=== PATIENT | female | born 1945 | race Caucasian/White ===

== ENCOUNTER → 2018-05-07 07:50 | Outpatient (CLI) | payer MEDICARE, SELFPAY ==
--- NOTE | 2018-05-07 | DI.MG.S_ITS ---
BILATERAL DIGITAL SCREENING MAMMOGRAM 3D/2D WITH CAD: 05/07/2018 CLINICAL: Routine screening. Comparison is made to exams dated: 04/06/2016 mammogram, 04/04/2014 mammogram, and 06/14/2012 mammogram - [facility]. There are scattered fibroglandular elements in both breasts. Current study was also evaluated with a Computer Aided Detection (CAD) system. No significant masses, calcifications, or other findings are seen in either breast. There has been no significant interval change. IMPRESSION: NEGATIVE There is no mammographic evidence of malignancy. A 1 year screening mammogram is recommended. This exam was interpreted at Station ID: [id number]. NOTE: For mammograms, a report in lay terms will be sent to the patient. Approximately 15% of breast malignancies will not be visualized mammographically. In the management of a palpable breast mass, a negative mammogram must not discourage biopsy of a clinically suspicious lesion. Electronically Signed By: Ernie vidales/rajendra:05/07/2018 13:22:50 copy to: Scar [facility]reen letter sent: Normal Exam ACR BI-RADS Category 1: Negative [id number]
== END ==
PROVIDERS: PCP Family Medicine; Visit Provider Obstetrics & Gynecology
DX: Z12.31 Encounter for screening mammogram for malignant neoplasm of breast (principal)
CPT/HCPCS: 77063; 77067

== ENCOUNTER → 2018-05-10 09:28 | Outpatient (CLI) | payer MEDICARE, SELFPAY ==
--- NOTE | 2018-05-10 | DI.RAD.S_ITS ---
PROCEDURE: XR KNEE LT 3V INDICATIONS: LEFT KNEE PAIN TECHNIQUE: 3 views of the knee were acquired. COMPARISON: [facility], , KNEE 3V LEFT, 02/24/2015, 11:10. FINDINGS: Bones: No fractures or dislocations. No suspicious bony lesions. Moderate medial compartment osteoarthritic degenerative changes are noted. Mild lateral compartment osteoarthritic degenerative changes noted. Moderate to severe patellofemoral compartment osteoarthritic changes. Numerous ossifications project over the suprapatellar joint space and the posterior joint space concerning for ossified intra-articular loose bodies. Soft tissues: No joint effusion. IMPRESSION: 1. Tricompartment osteoarthritis. 2. Findings suspicious for multiple ossified intra-articular loose bodies. Recommend MRI of the left knee for definitive characterization if clinically indicated. Dictated by: Hoa Dixon MD, PhD on 05/10/2018 at 9:54 Approved by: Hoa Dixon MD, PhD on 05/10/2018 at 9:56
== END ==
PROVIDERS: PCP Family Medicine; Visit Provider Family Medicine
DX: M25.562 Pain in left knee (principal); M17.12 Unilateral primary osteoarthritis, left knee
CPT/HCPCS: 73562

== ENCOUNTER → 2018-05-28 07:19 | Outpatient (CLI) | payer MEDICARE, SELFPAY ==
--- NOTE | 2018-05-28 | DI.MRI.S_ITS ---
PROCEDURE: MR KNEE LT WO CON INDICATIONS: LEFT KNEE PAIN TECHNIQUE: Noncontrast sagittal PD fast spin echo and T2 fast spin echo with fat saturation, sagittal 3-D FLASH with fat saturation; coronal T1 spin echo and PD fast spin echo with fat saturation, and axial PD fast spin echo with fat saturation through the knee. COMPARISON: [facility], CR, XR KNEE LT 3V, 05/10/2018, 9:10. FINDINGS: Image quality: Excellent. Menisci: There is radial tearing along the free edge in the body of the lateral meniscus. There is a small focal degenerative tear within the posterior horn of the medial meniscus involving the inferior articular surface. The meniscal root ligaments appear intact. Cruciate ligaments: The anterior and posterior cruciate ligaments appear intact. Medial structures: The medial collateral ligament appears intact. The semimembranosus tendon insertions, and meniscocapsular junction appear intact. Visualized portions of the pes anserinus tendons appear within normal limits without discrete bursal fluid collections. Lateral structures: The lateral collateral ligament, long and short heads of the biceps femoris tendon appear intact. The popliteus tendon appears intact. Iliotibial band appears normal. Anterior structures: The quadriceps and patellar tendons appear intact. Patellar alignment is normal. No femoral trochlear dysplasia or ventral trochlear prominence. No edema in the infrapatellar fat pad. Bones and cartilage: No bone marrow contusions or fractures. There is mild osteophytosis. Mild cartilage thinning is present in the medial compartment with mild superficial chondral fraying. In the lateral compartment, there is mild superficial chondral heterogeneity. In the patellofemoral compartment, there is moderate cartilage thinning with mild chondral fissuring laterally associated with small foci of subchondral edema along the lateral patellar facet. Joint space: There is a small joint effusion. There are a few posterior joint bodies including 2 clustered joint bodies slightly posterior medial to the PCL measuring up to 1 cm and 2 joint bodies in a loculated joint recess extending inferiorly posterior to the proximal to vertebral joint. These measure up to 1.3 cm and 1 cm. No Ko's cyst. Normal appearing synovial plicae are incidentally noted. IMPRESSION: 1. Mild tearing of the menisci as described. 2. Small joint effusion with multiple posterior joint bodies in loculated joint recesses. 3. Mild to moderate tricompartmental osteoarthritic changes. Dictated by: Ino Connor M.D. on 05/28/2018 at 8:42 Approved by: Ino Connor M.D. on 05/28/2018 at 8:51
== END ==
PROVIDERS: PCP Family Medicine; Visit Provider Family Medicine
DX: M23.222 Derangement of posterior horn of medial meniscus due to old tear or injury, left knee (principal); M23.362 Other meniscus derangements, other lateral meniscus, left knee; M25.562 Pain in left knee; M25.462 Effusion, left knee; M17.12 Unilateral primary osteoarthritis, left knee
CPT/HCPCS: 73721

== ENCOUNTER → 2019-06-11 09:38 | Outpatient (CLI) | payer MEDICARE, SELFPAY ==
--- NOTE | 2019-06-11 | DI.MRI.S_ITS ---
PROCEDURE: MR HEAD/BRAIN WO CON INDICATIONS: Other visual disturbances TECHNIQUE: Non-contrast axial T1 spin echo, axial T2 fast spin echo, sagittal and axial FLAIR, coronal T2 fast spin echo, axial gradient echo, axial diffusion and ADC through the brain. The patient declined the scheduled contrast administration. COMPARISON: None. FINDINGS: Image quality: Excellent. CSF spaces: Ventricles appear symmetric in size and shape. Basal cisterns are patent. No extra-axial fluid collections. Brain: No intracranial bleeds or mass effects. There is cerebral volume loss for age. There are periventricular and deep white matter chronic small vessel ischemic changes. Brainstem appears normal. Diffusion-weighted images show no acute ischemic insults. No chronic ischemic insults. Normal intravascular flow voids are present. Skull and face: Calvarial bone marrow is normal in signal. Orbits are normal. Sinuses: Mild to moderate mucosal thickening is seen within the right maxillary sinus and the ethmoid air cells. Mild mucosal thickening is seen elsewhere within the paranasal sinuses. No abnormal mastoid air cell fluid can be seen. IMPRESSION: Unremarkable noncontrast intracranial study for age. Dictated by: Lucas Beth M.D. on 06/11/2019 at 11:34 Approved by: Lucas Beth M.D. on 06/11/2019 at 11:36
== END ==
PROVIDERS: PCP Family Medicine; Visit Provider Family Medicine
DX: H53.8 Other visual disturbances (principal); G44.52 New daily persistent headache (NDPH)
CPT/HCPCS: 70551

== ENCOUNTER → 2020-03-27 12:43 | Outpatient (CLI) | payer MEDICARE, SELFPAY ==
--- NOTE | 2020-03-27 12:45 | DI.RAD.S_ITS ---
This blank DEXA report has been sent in error by the PACS system. The correct and complete report will be forthcoming in 1-2 days. Thank you for your patience and understanding. COMPARISON: None. Dictated by: Cheo Rowland M.D. on 03/27/2020 at 13:36 Approved by: Cheo Rowland M.D. on 03/27/2020 at 13:36
== END ==
PROVIDERS: PCP Family Medicine; Referring Provider Obstetrics & Gynecology; Visit Provider Obstetrics & Gynecology
DX: Z13.820 Encounter for screening for osteoporosis (principal); Z78.0 Asymptomatic menopausal state
CPT/HCPCS: 77080

== ENCOUNTER → 2020-05-04 14:36 | Outpatient (CLI) | payer MEDICARE, SELFPAY ==
--- NOTE | 2020-05-04 | DI.MRI.S_ITS ---
PROCEDURE: MR HIP RT WO CON INDICATIONS: Pain in right hip TECHNIQUE: Noncontrast coronal T1 spin echo and STIR through the bony pelvis. Coronal and axial T2 fast spin echo with fat saturation, sagittal T1 spin echo, and oblique axial T2 fast spin echo with fat saturation through the hip. COMPARISON: None. FINDINGS: Image quality: Excellent. Bones and joints: No fracture identified. Sacroiliac joints are unremarkable in signal intensity. There is lower lumbar spondylosis and facet arthropathy. No pathologic hip joint effusion. No evidence of osteonecrosis. Tendons and ligaments: There is severe gluteus medius and minimus tendinopathy, with abnormal signal extending to the musculotendinous junction. Proximal iliotibial band intact. Iliopsoas tendon intact. Origin of the hamstring tendon intact. The straight and reflected heads of the rectus femoris muscle origin appear intact Ligamentum teres appears intact where visualized. Labrum: Probably chronic anterosuperior labral tear with macerated appearance. There is a astorga partial-thickness chondral loss. The alpha angle of the femur is within normal limits at less than 55 degrees. Soft tissues: Visualized muscles demonstrate normal bulk and internal signal. Quadratus femoris muscle normal. Proximal sciatic neurovascular bundle appears normal adjacent to the hamstring tendons. No free pelvic fluid. Bladder normal. Genitourinary structures and bowel loops appear normal where visualized. 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 Macerated appearing chronic anterosuperior labral tear, versus advanced degeneration. Mild adjacent partial-thickness chondral loss. Dictated by: Amaury Henriquez M.D. on 05/04/2020 at 17:10 Approved by: Amaury Henriquez M.D. on 05/04/2020 at 17:17
== END ==
PROVIDERS: PCP Family Medicine; Referring Provider Family Medicine; Visit Provider Family Medicine
DX: M25.551 Pain in right hip (principal); M47.816 Spondylosis without myelopathy or radiculopathy, lumbar region; M67.951 Unspecified disorder of synovium and tendon, right thigh
CPT/HCPCS: 73721

== ENCOUNTER → 2021-01-18 10:36 | Outpatient (CLI) | payer MEDICARE, SELFPAY ==
--- NOTE | 2021-01-18 10:41 | DI.RAD.S_ITS ---
PROCEDURE: FL JOINT INJECTION LARGE RT INDICATIONS: Unilateral primary osteoarthritis, right hip COMPARISON: None. TECHNIQUE: The indications, alternatives, benefits, risks, and complications of the procedure were explained to the patient. Written informed consent was obtained and placed in the chart. The patient was placed in an appropriate position on the fluoroscopy table, and a site was chosen for percutaneous access under fluoroscopic guidance. The site was prepped and draped in a sterile fashion. Local anesthetic was administered using a 1% lidocaine solution. A hypodermic or spinal needle was then used to access the symptomatic joint. Intra-articular location of the needle tip was confirmed by injecting a small amount of contrast, followed by steroid administration. The needle was then withdrawn, and a bandage applied to the puncture site. FINDINGS: Joint injected: Right hip Medications injected: 1 mL of 40 mg/mL Kenalog and 3 cc of 0.5% Ropivacaine mixture. Patient's pain before injection: 3 out of 10. Patient's pain after injection: 3 out of 10. Complications: None. IMPRESSION: Successful fluoroscopically guided administration of steroid and anaesthetic solution into the right hip joint. Dictated by: Amaury Henriquez M.D. on 01/18/2021 at 14:37 Approved by: Amaury Henriquez M.D. on 01/18/2021 at 14:37
== END ==
PROVIDERS: PCP Family Medicine; Referring Provider Orthopaedic Surgery; Visit Provider Orthopaedic Surgery
DX: M16.11 Unilateral primary osteoarthritis, right hip (principal)
CPT/HCPCS: 20610; 77002

== ENCOUNTER → 2022-04-06 11:46 | Outpatient (CLI) | payer MEDICARE, OTHER, SELFPAY ==
--- NOTE | 2022-04-06 11:51 | DI.RAD.S_ITS ---
PROCEDURE: XR CHEST 2V INDICATIONS: Wheezing TECHNIQUE: 2 views of the chest were acquired. COMPARISON: None. FINDINGS: Surgical changes and devices: None. Lungs and pleura: Lungs are clear. No pleural effusions or pneumothorax. Mediastinum: Mediastinal contours are normal. Heart size is normal. Large hiatal hernia. Bones and chest wall: No suspicious bony abnormalities. Soft tissues appear unremarkable. IMPRESSION: Large hiatal hernia. No evidence acute pulmonary process. Dictated by: Chirag Dhillon M.D. on 04/06/2022 at 13:30 Approved by: Chirag Dhillon M.D. on 04/06/2022 at 13:31
== END ==
PROVIDERS: PCP Family Medicine; Referring Provider Family Medicine; Visit Provider Family Medicine
DX: K44.9 Diaphragmatic hernia without obstruction or gangrene (principal); R06.2 Wheezing
CPT/HCPCS: 71046